=== PATIENT | female | born 1990 | race African-American/Black ===

== ENCOUNTER 2017-08-10 22:17 | Emergency (ER) | payer BC, OTHER ==
[~2017-08-10] VITALS: Ht 160 cm; Wt 100.0 kg
[~2017-08-10 22:17] MED LIST: CEPH500C3 PO; NAPR550 PO; Z.0.NO CURRENT MEDS
[2017-08-10 23:49] VITALS: BP 121/69; PULSE 98; RESP 18; TEMP 98.9; O2SAT 98
[2017-08-11 01:39] VITALS: BP 131/71; PULSE 80; RESP 16; O2SAT 80
[2017-08-11 02:40] VITALS: BP 107/67; PULSE 75; RESP 18; O2SAT 100
--- NOTE | 2017-08-11 03:05 | RADRPT ---
EXAM DATE/TIME: 08/11/2017 02:38 [place] COMPARISON: No previous studies available for comparison. INDICATIONS : Right hand pain after patient jammed 5th finger playing basketball MEDICAL HISTORY : None. SURGICAL HISTORY : None. ENCOUNTER: Initial ACUITY: 1 day PAIN SCORE: 10/10 LOCATION: Right 5th digit FINDINGS: Three view examination of the right hand demonstrates no dislocation or fracture. There is mild sof t tissue swelling involving the fifth finger. The carpal bones appear intact. The interphalangeal an d metacarpophalangeal joints are intact. Bony mineralization is normal. CONCLUSION: Soft tissue swelling. No evidence of fracture Brayan Magallon MD on August 11, 2017 at 3:00 Board Certified Radiologist. This report was verified electronically.
--- NOTE | 2017-08-11 03:23 | PD ---
HPI Chief Complaint: Injury Time Seen by Provider: 02:34 Travel History International Travel<30 days: No Contact w/Intl Traveler<30days: No Traveled to known affect area: No History of Present Illness HPI 26-year-old female presents to the emergency department for right fifth finger injury that occurred while playing basketball this evening. Patient states she caught the ball wrong and caused her right fifth finger to abduct and she pulled it back into place. Patient states is still not functioning properly and is very painful. Patient is right-handed. Patient denies other injury. Patient denies . PFSH Past Medical History Diminished Hearing: No Respiratory: Yes (ASTHMA A CHILD) Immunizations Current: Yes Tetanus Vaccination: > 5 Years Influenza Vaccination: No ?: Not LMP: 07/13/17 : 0 Para: 0 Miscarriage: 0 : 0 Past Surgical History Surgical History: No Previous Surgery Social History Alcohol Use: No Tobacco Use: No Substance Use: No Allergies-Medications (Allergen,Severity, Reaction): Coded Allergies: No Known Allergies (Verified Adverse Reaction, Unknown, 08/11/17) Reported Meds & Prescriptions Reported Meds & Active Scripts Active No Active Prescriptions or Reported Medications Review of Systems Except as stated in HPI: all other systems reviewed are Neg Physical Exam Narrative GENERAL: Well-developed well-nourished female no acute distress no respiratory disc SKIN: Warm and dry. MUSCULOSKELETAL: No cyanosis, or edema. Attention right fifth finger mild soft tissue swelling decreased range of motion on flexion extension abduction abduction no deformity distally digit is neurovascular tendon intact with brisk capillary refill less than 2 sec Data Data Last Documented VS Vital Signs Date Time Temp Pulse Resp B/P (MAP) Pulse Ox O2 Delivery O2 Flow Rate FiO2 08/11/17 02:40 75 18 107/67 (80) 100 Room Air 08/10/17 23:49 98.9 Orders Orders Hand, Complete ([id number]) (08/11/17 ) Splint Or Brace Apply/Monitor (08/11/17 03:20) Ed Discharge Order (08/11/17 03:20) MDM Medical Decision Making Medical Screen Exam Complete: Yes Emergency Medical Condition: Yes Medical Record Reviewed: Yes Interpretation(s) Last Impressions Hand X-Ray 08/11/17 0000 Signed Impressions: Service Date/Time: Friday, August 11, 2017 02:38 - CONCLUSION: Soft tissue swelling. No evidence of fracture Brayan Magallon MD Differential Diagnosis Sprain strain subluxation dislocation fracture Narrative Course Imaging study ordered Imaging study read by radiologist no acute injury no fracture dislocation or subluxation mild soft tissue swelling; associated with the patient and ulnar gutter splint applied Diagnosis Primary Impression: Sprain of finger, right Qualified Codes: S63.616A - Unspecified sprain of right little finger, initial encounter Referrals: Hand Surgeon call for appointment Primary Care Physician call for appointment Patient Instructions: General Instructions Additional Instructions: Wear splint Follow-up with primary care provider/as needed hand surgeon Take acetaminophen as needed for minor pain Take ibuprofen per package directions as needed for pain Associates inflammation Apply ice pack intermittently for first 1224 hrs. Return to the emergency department for any concerns or change in condition Scripts No Active Prescriptions or Reported Meds Disposition: 01 DISCHARGE HOME Condition: Stable Pushpa Anderson MD Aug 11, 2017 03:23
[2017-08-11 03:53] VITALS: BP 103/66
== END 2017-08-11 03:53 | disposition home or self-care (01) ==
LOC: PHED 22:17
DX: S63.616A Unspecified sprain of right little finger, initial encounter (principal); W21.05XA Struck by basketball, initial encounter; Y93.67 Activity, basketball; J45.909 Unspecified asthma, uncomplicated
CPT/HCPCS: 29125; 73130